=== PATIENT | male | born 1965 | race Caucasian/White ===

== ENCOUNTER → 2024-08-28 09:51 | Outpatient (REF) | payer BC, SELFPAY | LOC: HWRCS 09:51 | PROVIDERS: ATTENDING PHYSICIAN Internal Medicine Cardiovascular Disease; FAMILY PHYSICIAN Family Medicine | DX: R06.02 Shortness of breath (principal) | CPT/HCPCS: 93306 ==

== ENCOUNTER → 2024-08-31 10:51 | Outpatient (REF) | payer BC, SELFPAY | LOC: DHCBC/DCA 10:51 | PROVIDERS: ATTENDING PHYSICIAN Internal Medicine Cardiovascular Disease; FAMILY PHYSICIAN Family Medicine | DX: R06.02 Shortness of breath (principal) | CPT/HCPCS: 78452; 93017; A9500 ==